=== PATIENT | male | born 1965 | race African-American/Black ===

== ENCOUNTER 2018-08-14 19:55 | Emergency (ER) | payer SELFPAY ==
[2018-08-14 21:17] LABS: ABSOLUTE BASOPHILS # (AUTO) 0.1 10^3/uL (0.0-0.2); ABSOLUTE LYMPHOCYTES (AUTO) 1.9 10^3/uL (0.5-4.7); ABSOLUTE MONOCYTES (AUTO) 0.7 10^3/uL (0.1-1.4); ABSOLUTE NEUT (AUTO) 4.4 10^3/uL (1.7-8.2); BASOPHILS % (AUTO) 1.2 % (0-2); EOSINOPHILS % (AUTO) 0.2 % (0-6); HEMATOCRIT 43.5 % (37.9-51.0); HEMOGLOBIN 14.7 g/dL (13.5-17.0); LYMPHOCYTES % (AUTO) 27.1 % (13-45); MEAN CORPUSCULAR HEMOGLOBIN 33.5 pg (27.0-33.4); MEAN CORPUSCULAR HGB CONC 33.8 g/dL (32.0-36.0); MEAN CORPUSCULAR VOLUME 99 fl (80-97); MONOCYTES % (AUTO) 9.6 % (3-13); PLATELET COUNT 212 10^3/uL (150-450); RED BLOOD COUNT 4.39 10^6/uL (4.35-5.55); RED CELL DISTRIBUTION WIDTH 17.3 % (11.5-14.0); SEGMENTED NEUTROPHILS % (AUTO) 61.9 % (42-78); TOTAL CELLS COUNTED % (AUTO) 100 %; WHITE BLOOD COUNT 7.1 10^3/uL (4.0-10.5)
[2018-08-14 21:19] LABS: APPEARANCE,URINE CLEAR; BILIRUBIN,URINE NEGATIVE (NEGATIVE); COLOR,URINE STRAW; GLUCOSE, URINE NEGATIVE (NEGATIVE); KETONES,URINE NEGATIVE (NEGATIVE); LEUKOCYTE ESTERASE,URINE NEGATIVE (NEGATIVE); NITRITE,URINE NEGATIVE (NEGATIVE); PROTEIN,URINE NEGATIVE (NEGATIVE); URINE SPECIFIC GRAVITY 1.003; UROBILINOGEN,URINE NEGATIVE mg/dL (<2.0)
[2018-08-14 21:49] LABS: ALANINE AMINOTRANSFERASE 27 U/L (21-72); ALBUMIN 4.3 g/dL (3.5-5.0); ALCOHOL 247 mg/dL (NONE DETECTED); ALKALINE PHOSPHATASE 80 U/L (38-126); ANION GAP 13 (5-19); ASPARTATE AMINO TRANSFERASE 48 U/L (17-59); BILIRUBIN,DIRECT 0.3 mg/dL (0.0-0.4); BILIRUBIN,TOTAL 0.4 mg/dL (0.2-1.3); BLOOD UREA NITROGEN 11 mg/dL (7-20); CALCIUM 9.5 mg/dL (8.4-10.2); CARBON DIOXIDE 24 mmol/L (22-30); CHLORIDE 105 mmol/L (98-107); GLUCOSE 122 mg/dL (75-110); POTASSIUM 4.3 mmol/L (3.6-5.0); TOTAL PROTEIN 7.7 g/dL (6.3-8.2)
[2018-08-14 21:51] LABS: ACETAMINOPHEN < 10 ug/mL (10-30)
[2018-08-14 21:57] LABS: URINE AMPHETAMINES SCREEN NEGATIVE; URINE BARBITURATES SCREEN NEGATIVE; URINE BENZODIAZEPINES SCREEN NEGATIVE; URINE COCAINE SCREEN NEGATIVE; URINE MARIJUANA (THC) SCREEN UNCONFIRMED POSITIVE; URINE METHADONE SCREEN NEGATIVE; URINE PHENCYCLIDINE SCREEN NEGATIVE
--- NOTE | 2018-08-14 22:04 | ER Document Report ---
ED Psych Disorder / Suicide - General Chief Complaint: Psych Problem Stated Complaint: SUICIDAL IDEATION Time Seen by Provider: 08/14/18 22:04 Information source: Patient Notes: Patient is a 53-year-old male with a history of bipolar and major depression who presents with suicidal ideation in the setting of being noncompliant with medications for 3-4 months as well as drinking alcohol daily. He reports hearing voices that tell him to both hurt himself and hurt other people, denies visual hallucinations, no thoughts of paranoia or feeling as though he is being followed. Patient reports 2 prior episodes of attempting suicide with hanging in the past and states if he were going to do it again he would hang himself. He states he has "no family," and has "nowhere else to go." TRAVEL OUTSIDE OF THE [place] IN LAST 30 DAYS: No - HPI Patient complains to provider of: Hallucinating, Homicidal ideation, Suicidal ideation Onset: Just prior to arrival Onset was: Gradual Severity: None Pain Level: Denies Suicide Risk Factors: Bipolar, Chronic illness, Depressed, Hallucinations, Prior suicide attempt Situational problems related to: Other - Alcohol, medication noncompliant Suicide Attempt Method: Other - Hanging Normal mood: No - Depressed Associated symptoms: Depressed, Psychomotor depression Similar symptoms previously: Yes Recently seen / treated by doctor: No - Related Data Allergies/Adverse Reactions: No Known Allergies Allergy (Unverified 08/14/18 19:56) Past Medical History - Social History Smoking Status: Current Every Day Smoker Chew tobacco use (# tins/day): No Frequency of alcohol use: Heavy Drug Abuse: Marijuana Lives with: Alone Family History: Reviewed & Not Pertinent Patient has suicidal ideation: Yes Patient has homicidal ideation: Yes - Past Medical History Cardiac Medical History: Reports: None Pulmonary Medical History: Reports: None EENT Medical History: Reports: None Neurological Medical History: Reports: None Endocrine Medical History: Reports: None Renal/ Medical History: Reports: None. Denies: Hx Peritoneal Dialysis Malignancy Medical History: Reports None GI Medical History: Reports: None Musculoskeletal Medical History: Reports None Skin Medical History: Reports None Psychiatric Medical History: Reports: Hx Bipolar Disorder, Hx Dementia Traumatic Medical History: Reports: None Infectious Medical History: Reports: None Surgical Hx: Negative Past Surgical History: Reports: Hx Orthopedic Surgery - right ankle - Immunizations Immunizations up to date: Yes Hx Diphtheria, Pertussis, Tetanus Vaccination: Yes History of Influenza Vaccine for 06/2017 - 11/2017 Season: Unknown Review of Systems - Review of Systems -: Yes ROS unobtainable due to patient's medical condition Constitutional: No symptoms reported EENT: No symptoms reported Cardiovascular: No symptoms reported Respiratory: No symptoms reported Gastrointestinal: No symptoms reported Genitourinary: No symptoms reported Male Genitourinary: No symptoms reported Musculoskeletal: No symptoms reported Skin: No symptoms reported Hematologic/Lymphatic: No symptoms reported Neurological/Psychological: See HPI, Depression, Hallucinations, Homicidal ideation, Suicidal ideation -: Yes All other systems reviewed and negative Physical Exam - Vital signs Vitals: Pulse Resp BP Pulse Ox 103 H 16 122/78 98 08/14/18 20:01 08/14/18 20:01 08/14/18 20:01 08/14/18 20:01 Interpretation: Normal - General General appearance: Appears well, Alert In distress: None - HEENT Head: Normocephalic, Atraumatic Eyes: Normal Pupils: PERRL - Respiratory Respiratory status: No respiratory distress Chest status: Nontender Breath sounds: Normal Chest palpation: Normal - Cardiovascular Rhythm: Regular Heart sounds: Normal auscultation Murmur: No - Abdominal Inspection: Normal Distension: No distension Bowel sounds: Normal Tenderness: Nontender Organomegaly: No organomegaly - Rectal Tenderness: No - Deferred - Genitourinary Notes: Deferred - Back Back: Normal, Nontender - Extremities General upper extremity: Normal inspection, Nontender, Normal color, Normal ROM , Normal temperature General lower extremity: Normal inspection, Nontender, Normal color, Normal ROM , Normal temperature, Normal weight bearing. No: Antoine's sign - Neurological Neuro grossly intact: Yes Cognition: Normal Orientation: AAOx4 Rona Coma Scale Eye Opening: Spontaneous Rona Coma Scale Verbal: Oriented Rona Coma Scale Motor: Obeys Commands Rona Coma Scale Total: 15 Speech: Normal Motor strength normal: LUE, RUE, LLE, RLE Sensory: Normal - Psychological Associated symptoms: Depressed, Psychomotor depression, Other - No response to internal stimuli. No: Aggressive, Agitated, Angry - Skin Skin Temperature: Warm Skin Moisture: Dry Skin Color: Normal Course - Re-evaluation Re-evalutation: 08/15/18 00:28 Plan will be to medically clear the patient and involuntary commit for inpatient treatment. 08/15/18 01:24 Patient is medically clear. - Vital Signs Vital signs: Temp Pulse Resp BP Pulse Ox 103 H 16 122/78 98 08/14/18 20:01 08/14/18 20:01 08/14/18 20:01 08/14/18 20:01 - Laboratory Result Diagrams: 08/14/18 21:02 08/14/18 21:02 Laboratory results interpreted by me: 08/14/18 08/14/18 08/14/18 21:02 21:02 21:02 MCV 99 H MCH 33.5 H RDW 17.3 H Glucose 122 H Urine Blood SMALL H Acetaminophen < 10 L - EKG Interpretation by Me EKG shows normal: Sinus rhythm Rate: Normal Marilla/QRS: No: LBBB Voltage: Consistant with LVH P Waves: No: WANDA, LAE, Absent, AV Dissociation, Other Heart block present: No: 1st Degree, Mobitz 1, Mobitz 2, CHB (3rd degree block) When compared to previous EKG there are: Previous EKG unavailable Discharge - Discharge Clinical Impression: Acute psychosis, Alcohol abuse Schizophrenia Qualifiers: Schizophrenia type: unspecified Qualified Code(s): F20.9 - Schizophrenia, unspecified Condition: Good Disposition: PSYCH HOSP/UNIT
[2018-08-14] MEDS ORDERED: TRAZODONE HCL 50 MG TABLET PO SCH (23:45)
[2018-08-14] MEDS ORDERED: IBUPROFEN 600 MG TABLET PO SCH (23:45)
[2018-08-14] MEDS ORDERED: LORAZEPAM 0.5 MG TABLET PO PRN (23:46)
[2018-08-14] MEDS ORDERED: DIPHENHYDRAMINE HCL 25 MG CAPSULE PO PRN (23:46)
[2018-08-15] MEDS: HALOPERIDOL 5 MG TABLET PO SCH ×2 (00:11→09:41)
[2018-08-15] MEDS: QUETIAPINE FUMARATE 25 MG TABLET PO SCH ×2 (00:12→09:41)
--- NOTE | 2018-08-15 00:32 | RADIOLOGY REPORT (SQ) ---
EXAM DESCRIPTION: XR ANKLE 2 VIEWS COMPLETED DATE/TME: 08/14/2018 23:46 CLINICAL HISTORY: 53 years, Male, Ankle pain COMPARISON: None. NUMBER OF VIEWS: 2 TECHNIQUE: 2 view right ankle LIMITATIONS: None. FINDINGS: Intramedullary jonathan of the tibia partially seen. Deformity of the distal fibula consistent with old trauma. No radiographic evidence for acute fracture or dislocation. 8.4 mm linear metallic density in the plantar soft tissues could reflect old trauma and/or postsurgical change. Poorly for the possibility of foreign body. Small calcaneal spurs. Degenerative changes of the hindfoot and ankle mortise. IMPRESSION: Postsurgical and degenerative changes. Old fracture deformity of the fibula. Linear metallic density in the plantar soft tissues, as above copyright 2010 [employer]- All Rights Reserved
[2018-08-15] MEDS ORDERED: TRAZODONE HCL 50 MG TABLET PO PRN (03:58)
[2018-08-15 11:02] VITALS: BP 125/75
--- NOTE | 2018-08-15 13:05 | EKG REPORT ---
SEVERITY:- OTHERWISE NORMAL ECG - SINUS RHYTHM BORDERLINE LEFT AXIS DEVIATION : Confirmed by: Tana Lin MD 15-Aug-2018 13:05:05
--- NOTE | 2018-08-15 23:26 | PSYCHOLOGICAL NOTE ---
Psych Note - Psych Note Date seen by psych provider: 08/15/18 Time seen by psych provider: 07:40 - Chart review at 0742. Evaluation from 1005- 1012. Psych Note: Reason for Consult: No medications for 3-4 months, alcohol intoxication/use, SI with plan to hang self (reportedly has done in the past) Contact Permissions: Unknown. He did ask to be discharged by 1100 if he was being discharged so he would be able to link with person he could stay with (if much later he may not be able to get in touch). Patient is a 53 year old male who presented to the ED last evening via walk in after someone he cares about told him to go to the ED to get help, he had been off medications 3-4 months due to not being able to afford them, had been SI for past 3 weeks with increase in intensity and thoughts of hanging self ( reportedly did this in the past). He stated he wanted to restart medications and stop using alcohol. Serum Alcohol Level was 247 upon arrival to the ED and UDS positive for Cannabis. ED MAR had the following medications listed: Haldol 5MG BID, Seroquel 50MG QD, Trazodone 50MG QHS PRN, Ativan 0.5MG PRN, Benadryl 25MG PRN and Ibuprofen 600MG. He had been administered Haldol 5MG at 0011 and Seroquel 50MG at 0012. Today patient stated "I am a little down and confused" when asked how he was doing this morning. He admitted "yeah I need help with alcohol also." He acknowledged previous treatment both detox and outpatient. He denied a seizure history form alcohol withdrawal but noted "shakes, headaches, sweats, vomiting and cramping" as common withdrawal symptoms. He reported being diagnosed with Manic-Depression, Psychotic something and Severe Depression. He identified his last medication regimen was: Haldol 100MG, Seroquel 100MG, Prozac , Valium. He stated he has been off medications for over a year (had told triage it had been 3-4 months). He denied current SI. He reported he "tried a few years ago, attempted to hang self, would probably be how he would do it, had been hospitalized at [facility]. He stated that was not his only hospitalization. When informed about [facility] and how they are the service provider that helps with obtaining voluntary detox he commented "What about my medications, I need to get back on them and if I am going to be discharged can it be by 1100 so that I can link with the person who would give me a place to stay tonight, then would have access to a phone and place for [facility] to meet me." This showed future/goal oriented thinking. Patient was alert and oriented to person, place, time and situation. Mood was depressed with flat affect (note some likely due to sobering up from alcohol intoxication). He denied current SI/HI. He did not appear to be responding to internal stimuli as evidenced by fair eye contact, answering questions appropriately when addressed, staying on topic, carrying on dialogue conversation and being engaged in evaluation. Thought processes were linear and organized. Conversational speech was within normal limits for rate, tone and prosody. Intellectual abilities are estimated to be average. Insight, judgment and impulse control were fair as evidenced by no longer being under the influence of alcohol, wanting help and having forward/future/goal/linear/ organized thinking. Diagnosis: 291.9 (F10.99) Unspecified Alcohol Related Disorder 292.9 (F12.99) Unspecified Cannabis Related Disorder 296.80 (F31.9) Unspecified Bipolar and Related Disorder by History per patient Impression/Plan: Patient is cleared from acute psychiatric services. Recommendation to rescind 24 Hour IVC Petition. He denied current SI/HI and indicated forward/future/goal oriented/linear/organized thinking as evidenced by inquiring about getting medications and being able to get discharged by a certain time in order to link up with someone who would let him stay the night ( then per patient and his words would have phone access and a place for [facility] to meet him). There was no observed psychosis. He had time to sober up from alcohol and was no longer intoxicated. He was provided with the outpatient MH resource sheet which high lighted [facility] number for crisis/talk therapy/ outpatient/voluntary detox placement/linkage to other support. Discharge instructions noted [facility] for ongoing outpatient services. Patient provided with scripts for Haldol 5MG BID, Cogentin 1MG QD and Seroquel 50MG QHS since these were restarted in the ED by overnight physician. Consulted with Dr. Cronin regarding the management and care of patient. ED Physician in agreement with recommendations.
== END 2018-08-15 11:01 | disposition home or self-care (01) ==
LOC: ER 19:55
DX: F20.9 Schizophrenia, unspecified (principal); F32.9 Major depressive disorder, single episode, unspecified; F10.10 Alcohol abuse, uncomplicated; R45.851 Suicidal ideations; F17.200 Nicotine dependence, unspecified, uncomplicated
CPT/HCPCS: 36415; 80053; 80307; 81001; 85025; 93005; 93010; 99284